=== PATIENT | female | born 1960 | race Caucasian/White ===

== ENCOUNTER 2019-10-18 15:27 | Emergency (ER) | payer BC, SELFPAY ==
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
[2019-10-18 15:59] VITALS: BP 122/72; PULSE 106; RESP 14; TEMP 36.9; O2SAT 97; BMI 33.3
[2019-10-18] MEDS: LIDO 1%/SOD BICARB 8.4% (10ML) 10 ML SYRINGE INJ (17:55)
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
[2019-10-18 18:01] VITALS: BP 118/78; PULSE 72; RESP 16; O2SAT 99
== END 2019-10-18 18:03 | disposition home or self-care (01) ==
PROVIDERS: Emergency Provider Emergency Medicine
DX: S01.511A Laceration without foreign body of lip, initial encounter (principal); S80.212A Abrasion, left knee, initial encounter; S50.11XA Contusion of right forearm, initial encounter; S70.11XA Contusion of right thigh, initial encounter; V19.9XXA Pedal cyclist (driver) (passenger) injured in unspecified traffic accident, initial encounter
CPT/HCPCS: 12011; 99283